=== PATIENT | male | born 1950 | race Caucasian/White ===

== ENCOUNTER 2018-06-16 05:45 | Day surgery (SDC) | payer OTHER | END 2018-06-16 10:05 | disposition home or self-care (01) | LOC: AMB-ENDOS 05:45 | DX: K62.4 Stenosis of anus and rectum (principal) ==

== ENCOUNTER 2019-07-20 08:45 | Day surgery (SDC) | payer OTHER | END 2019-07-20 14:20 | disposition home or self-care (01) | LOC: AMB-ENDOS 08:45 | DX: K62.4 Stenosis of anus and rectum (principal); K64.1 Second degree hemorrhoids ==

== ENCOUNTER 2020-08-29 09:30 | Day surgery (SDC) | payer OTHER | END 2020-08-29 16:20 | disposition home or self-care (01) | LOC: AMB-ENDOS 09:30 | PROVIDERS: ATTEND Colon & Rectal Surgery | DX: K57.32 Diverticulitis of large intestine without perforation or abscess without bleeding (principal); K62.4 Stenosis of anus and rectum; K64.0 First degree hemorrhoids; Z20.828 Contact with and (suspected) exposure to other viral communicable diseases ==